=== PATIENT | male | born 1930 | race Caucasian/White ===

== ENCOUNTER 2018-08-25 10:18 | Observation (INO) | payer MEDICARE ==
--- NOTE | 2018-08-25 10:37 | ED ---
Syncope/Near Syncope - HPI Summary HPI Summary: An 87 y/o male GRAYSON presents to the ED due to syncope the morning of 08/25/2018 at [facility]. Per he had right shoulder or right chest pain prior to syncope , so she told him to wait at the caf while she finished shopping. She was told that her lost consciousness and hit his head. He also c/o cough. He denies ALLEN, N/V/D, Fever, Chills, Erythema (eyes), Sore throat, Shortness of Breath, Abdominal pain, Dysuria, Hematuria, Edema, Rash and Dizziness. The pt states he is not on blood thinners but is taking BP medication and recently changed his cholesterol medication to Lovastatin one week ago. Per he has a Hx of dementia. He denies a Hx of A-fib. His states that the pt had one syncopal episode 4 years ago when drinking more than usual. - History Of Current Complaint Time Seen by Provider: 08/25/18 10:19 Hx Obtained From: Patient, Family/Concrete Puddler, EMS Onset/Duration: Sudden Onset Context: Witnessed Activity At Onset: Unknown Associated Head Trauma: Yes Associated Signs And Symptoms: Chest Pain - Risk Factors Cardiac Risk Factors: Hypertension, Family History - OR - Allergies/Home Medications Allergies/Adverse Reactions: Allergies Allergy/AdvReac Type Severity Reaction Status Date / Time No Known Allergies Allergy Verified 08/25/18 10:30 Home Medications: Home Medications Ascorbic Acid TAB* [Vitamin C TAB*] 500 mg PO DAILY 08/25/18 [History Confirmed 08/25/18] Calcium Carb/Vit D3/Minerals [Calcium 600+D Plus [place]] 1 tab PO DAILY [History Confirmed 08/25/18] Cholecalciferol TAB* [Vitamin D TAB*] 400 unit PO DAILY 08/25/18 [History Confirmed 08/25/18] Enalapril TAB* [Vasotec TAB*] 20 mg PO BID 08/25/18 [History Confirmed 08/25/18] Finasteride TAB* [Proscar TAB*] 5 mg PO DAILY 08/25/18 [History Confirmed ] Flaxseed Oil [[place]-3 Flaxseed Oil] 1,000 mg PO DAILY 08/25/18 [History Confirmed 08/25/18] Lovastatin (NF) [Mevacor (NF)] 10 mg PO BEDTIME 08/25/18 [History Confirmed 03/07] Memantine TAB* [Namenda TAB*] 10 mg PO BID 08/25/18 [History Confirmed 08/25/18] Multivitamins/Minerals TAB* [Theragran/minerals TAB*] 1 tab PO DAILY 08/25/18 [ History Confirmed 08/25/18] Tamsulosin CAP* [Flomax CAP*] 0.4 mg PO BEDTIME 08/25/18 [History Confirmed 03/07] PMH/Surg Hx/FS Hx/Imm Hx Cardiovascular History: Denies: Hx Pacemaker/ICD Sensory History: Reports: Hx Hearing Aid Psychiatric History: Denies: Hx Panic Disorder - Cancer History Cancer Type, 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 BASAL SKIN CA REMOVED FROM NOSE, BACK,FOOT Infectious Disease History: No Infectious Disease History: Denies: Traveled Outside the [place] in Last 30 Days - Family History Known Family History: Positive: Cardiac Disease Negative: Diabetes, Blood Disorder - Social History Lives: With Family Alcohol Use: Occasionally Review of Systems Negative: Fever, Chills Negative: Erythema Negative: Sore Throat Positive: Chest Pain Positive: Cough. Negative: Shortness Of Breath Negative: Abdominal Pain, Vomiting, Diarrhea, Nausea Negative: dysuria, hematuria Positive: Myalgia - right shoulder pain. Negative: Edema Negative: Rash Neurological: Negative - dizziness Negative: Headache All Other Systems Reviewed And Are Negative: Yes Physical Exam - Summary Physical Exam Summary: Constitutional: Well-developed, Well-nourished, Alert. (-) Distressed Skin: Warm, Dry HENT: Normocephalic, abrasion left frontal Eyes: Conjunctiva normal Neck: Musculoskeletal ROM normal neck. (-) JVD, (-) Stridor, (-) Tracheal deviation Cardio: Rhythm regular, rate normal, Heart sounds normal; Intact distal pulses; The pedal pulses are 2+ and symmetric. Radial pulses are 2+ and symmetric. (-) Murmur Pulmonary/Chest wall: Effort normal. (-) Respiratory distress, (-) Wheezes, (-) Rales Abd: Soft, (-) epigastric tenderness, (-) Distension, (-) Guarding, (-) Rebound Musculoskeletal: (-) Edema Lymph: (-) Cervical adenopathy Neuro: Alert, Oriented x3 Psych: Mood and affect Normal Triage Information Reviewed: Yes Vital Signs On Initial Exam: Initial Vitals Temp Pulse Resp BP Pulse Ox 99.8 F 71 16 179/101 96 08/25/18 10:27 08/25/18 10:27 08/25/18 10:27 08/25/18 10:27 08/25/18 10:27 Vital Signs Reviewed: Yes Diagnostics - Vital Signs Vital Signs Temp Pulse Resp BP Pulse Ox 08/25/18 10:27 99.8 F 71 16 179/101 96 - Laboratory Result Diagrams: 08/25/18 10:35 08/25/18 10:35 Lab Statement: Any lab studies that have been ordered have been reviewed, and results considered in the medical decision making process. - Radiology CXR Radiology Interpretation Completed By: Radiologist - No evidence for acute cardiopulmonary disease. This report has been reviewed by the ED physician. - CT Brain CT Interpretation Completed By: Radiologist - 1. NO EVIDENCE FOR ACUTE INTRACRANIAL ABNORMALITY. 2. ATROPHY AND FINDINGS MOST CONSISTENT WITH MODERATE CHRONIC SMALL VESSEL ISCHEMIC CHANGES. This report has been reviewed by the ED physician. - EKG 10:15 Cardiac Rate: NL - 72 bpm EKG Rhythm: Sinus Rhythm Summary of EKG Findings: no STEMI Course/Dx Course Of Treatment: An 87 y/o male GRAYSON presents to the ED due to syncope the morning of 08/25/2018 at [facility]. His PE showed an abrasion on his left frontal area of his head. His CXR was negative while his Brain CT showed findings most consistent with chronic small vessel ischemic changes. His EKG and lab results were normal. He had an episode of HTN in the ED. He will be admitted to Dr. Guido, hospitalist. Dx: syncope - Diagnoses Provider Diagnoses: Syncope - Physician Notifications Discussed Care of Patient With: James Guido Time Discussed With Above Provider: 11:30 Instructed by Provider To: Admit As Inpatient Discharge - Sign-Out/Discharge Documenting (check all that apply): Patient Departure - Admit - Discharge Plan Condition: Fair Disposition: ADMITTED TO [facility] - Attestation Statements Document Initiated by Scribe: Yes Documenting Scribe: Gil Jolly Provider For Whom Scribe is Documenting (Include Credential): Fernando Sotelo MD Scribe Attestation: Gil Childs scribed for Fernando Sotelo MD on 08/25/18 at 1327.
[2018-08-25 10:47] LABS: ABS Basophils 0 10^3/ul (0-0.2); ABS Eosinophils 0 10^3/ul (0-0.6); ABS Lymphocytes 1.4 10^3/ul (1.0-4.8); ABS Monocytes 0.9 10^3/ul (0-0.8); ABS Neutrophils 8.1 10^3/ul (1.5-7.7); ABS Nucleated RBC 0 10^3/ul; Eosinophil % 0.4 % (0-6); Hematocrit 39 % (42-52); Hemoglobin 13.3 g/dl (14.0-18.0); Lymphocyte % 13.3 % (25-47); Mean Corpuscular HGB Conc 34 g/dl (31-36); Mean Corpuscular Hemoglobin 32 pg (27-31); Mean Corpuscular Volume 93 fL (80-94); Mean Platelet Volume 7.2 fL (7.4-10.4); Nucleated Red Blood Cells % 0; Platelet Count 230 10^3/ul (150-450); Red Cell Distribution Width 13 % (10.5-15); White Blood Count 10.5 10^3/ul (3.5-10.8)
[2018-08-25 11:05] LABS: EGFR Non-African American 37.1 (>60)
[2018-08-25] MEDS ORDERED: NS 0.9% 1000 ML* 1,000 ML IV SCH (12:15)
[2018-08-25 13:16] LABS: Urine Appearance Cloudy; Urine Blood Negative (Negative); Urine Color Yellow; Urine Ketones Negative (Negative); Urine Protein Negative (Negative); Urine Specific Gravity 1.014 (1.010-1.030); Urine Urobilinogen Negative (Negative)
[2018-08-25] MEDS: Bacitracin OINTMENT* 0.5% 0.5 oz TUBE TOPICAL SCH (14:02)
--- NOTE | 2018-08-25 15:05 | ECHO ---
Patient: BLU GUTIERRES [facility] Rec#: [id number] : 1930 Date: 08/25/2018 Age: 87y Height: 170.18 cm / 67.0 in Weight: 68.04 kg / 150.0 lbs Sex: M BSA: 1.79 Room#: ED 19 Admit Date#: 08/25/2018 Type: Inpatient Referring: ARI GUPTA Reading: Marquis Frost DO Assembly Inspector: Madeline Khanna,RDCS,RDMS CC: PAULA TAYLOR WAREHOUSE HELPER Transthoracic Echocardiogram Indication: Syncope BP: 178/70 HR: 82 Rhythm: NSR Findings History: HTN Technical Comments: The study quality is good. Left Ventricle: The left ventricular chamber size is normal. Mild concentric left ventricular hypertrophy is observed. Global left ventricular wall motion and contractility are within normal limits. There is normal left ventricular systolic function. The estimated ejection fraction is 60-65%. Abnormal left ventricular diastolic function is observed. Left Atrium: The left atrium is mildly dilated. Right Ventricle: The right ventricular chamber size and systolic function are within normal limits. Right Atrium: The right atrial cavity size is normal. Aortic Valve: The aortic valve is trileaflet. The aortic valve leaflets are mildly thickened. Mild aortic leaflet calcification is visualized. Systolic excursion of the aortic valve is normal. There is aortic annular calcification. There is no evidence of aortic regurgitation. There is no evidence of aortic stenosis. Mitral Valve: Mild mitral annular calcification present. The mitral valve leaflets are mildly thickened. There is trace to mild mitral regurgitation. There is no evidence of mitral stenosis. Tricuspid Valve: The tricuspid valve leaflets are normal. There is trace tricuspid regurgitation. Unable to estimate the right ventricular systolic pressure. Pulmonic Valve: There is no evidence of pulmonic valve thickening. There is a trace pulmonic regurgitation. There is no pulmonic stenosis. Pericardium: There is no significant pericardial effusion. Pulmonary Artery: The main pulmonary artery is not well visualized. Venous: The inferior vena cava is not visualized. Conclusions The left ventricular chamber size is normal. Mild concentric left ventricular hypertrophy is observed. Global left ventricular wall motion and contractility are within normal limits. There is normal left ventricular systolic function. The estimated ejection fraction is 60-65%. The left atrium is mildly dilated. The right ventricular chamber size and systolic function are within normal limits. No significant valvular abnormalities noted. None prior for comparison at time of interpretation. Measurements Name Value Normal Range RVIDd (AP) 2D 1.9 cm (0.9 - 2.6) RVDdMajor (2D) 2.2 cm (2.2 - 4.4) RAd ISD 4CH 3.5 cm (3.4 - 4.9) RA (A4C)W 2 cm (2.9 - 4.6) IVSd (2D) 1.1 cm (0.6 - 1) LVPWd (2D) 1.1 cm (0.6 - 1) LVIDd (2D) 4.1 cm (3.6 - 5.4) LVIDs (2D) 1.9 cm - LV FS (2D) 54 % (25 - 45) Aortic Annulus 2 cm (1.4 - 2.6) Ao root diameter (2D) 3.3 cm (2.1 - 3.5) Ascending Ao 3 cm (2.1 - 3.4) Aortic arch 2.3 cm (1.8 - 3.4) LA dimension (AP) 2D 3.8 cm (2.3 - 3.8) LAd ISD 4CH 5.2 cm (2.9 - 5.3) LA ISD 4CH W 4.6 cm (2.5 - 4.5) Name Value Normal Range LA ESV SP 4CH (A/L) 53.5 ml - LA ESV SP 2CH (A/L) 67.8 ml - LA ESV BP (A/L) 64.62 ml - LA ESV BP (A/L) index 36 ml/m2 - LA ESV SP 4CH (MOD) 52.8 ml - LA ESV SP 2CH (MOD) 66.89 ml - Name Value Normal Range MV E-wave Vmax 0.9 m/sec - MV deceleration time 220 msec - MV A-wave Vmax 1.3 m/sec - MV E:A ratio 0.7 ratio - P. vein S-wave Vmax 0.7 m/sec - P. vein D-wave Vmax 0.3 m/sec - P. vein S:D Vmax ratio 2.6 ratio - P. vein A-wave duration 121 msec - LV septal e' Vmax 0.06 m/sec - LV lateral e' Vmax 0.05 m/sec - LV E:e' septal ratio 16 ratio - LV E:e' lateral ratio 18 ratio - Name Value Normal Range AV Vmax 1.3 m/sec - AV VTI 27 cm - AV peak gradient 7 mmHg - AV mean gradient 3.5 mmHg - LVOT diameter 2 cm - LVOT Vmax 0.8 m/sec - LVOT VTI 20.5 cm - LVOT peak gradient 2.6 mmHg - LVOT mean gradient 1.5 mmHg - LON (continuity Vmax) 1.9 cm2 - LON (continuity VTI) 2.3 cm2 - KATIE Vmax 0.4 m/sec - Name Value Normal Range MV Vmax 1.4 m/sec - MV VTI 38 cm - MV peak gradient 8 mmHg - MV mean gradient 2.3 mmHg - MV PHT 104 msec - MVA (PHT) 2.1 cm2 - MVA (continuity VTI) 1.6 cm2 - Name Value Normal Range RAP 8 mmHg - Name Value Normal Range PV Vmax 0.6 m/sec - PV peak gradient 1.6 mmHg -
--- NOTE | 2018-08-25 16:39 | HP ---
AMENDED REPORT NOW INCLUDES DESIGNATED COSIGNER CC: Mario Weiner NP * HISTORY AND PHYSICAL: DATE OF ADMISSION: 08/25/18 PRIMARY CARE PHYSICIAN: Mario Weiner NP PROVIDER: Nikki Gupta NP ATTENDING PHYSICIAN: Dr. James Guido * (dictated by Nkiki Gupta NP). CHIEF COMPLAINT: Syncope HISTORY OF PRESENT ILLNESS: Mr. Dobbs is an 87-year-old male with a past medical history of dementia, hypertension, hyperlipidemia, BPH, who presented to the ED after an unwitnessed syncopal event. The patient has dementia at baseline and is a poor historian and does not remember the event. Per the pt's , he was with her at [facility] when he told her that he was feeling some right shoulder pain and she told him to wait for her in the cafe area. She then heard her name on the loudspeaker and was told that her had fainted and hit his head. When she came to the cafe, he was lying on the ground and she reported that he looked pale. The patient was in his normal state of health prior to this event. She denied that he's had recent illness, fever, chills, cough, nausea, vomiting, diarrhea. The patient ate breakfast as usual today and drank coffee and orange juice. Of note, the patient did have an episode of syncope 4 years ago and was told at that time that it was due to dehydration. On exam today, the patient denies dizziness, headache, shortness of breath, nausea, vomiting, abdominal pain, numbness or tingling in his extremities. The patient on exam does not endorse any right shoulder or chest pain. Of note, vitals in the ED were significant for SBP in the 170s. The patient was afebrile. The patient underwent a head CT in the ED, which showed no acute intracranial abnormalities; a chest x-ray, which showed no acute cardiopulmonary disease; and an EKG, which showed normal sinus rhythm without evidence of ischemia or infarction. The patient's labs were notable for a troponin of 0 and no leukocytosis. The hospitalist team was asked to admit this patient due to an unwitnessed syncopal event in a dementia patient despite having no risk factors for serious outcomes at 7 days using the [place] Syncope Rule. The patient will be worked up for orthostatic hypotension versus vasovagal syncope versus cardiogenic syncope. PAST MEDICAL HISTORY: 1. Dementia. 2. Hypertension. 3. Hyperlipidemia. 4. BPH. 5. Basal cell skin cancer. PAST SURGICAL HISTORY: 1. Hernia repair. 2. Basal skin cancer removal from nose, back, and foot. HOME MEDICATIONS: 1. Flaxseed oil 1000 mg p.o. daily. 2. Vitamin D tab 400 units p.o. daily. 3. Multivitamin 1 tab p.o. daily. 4. Calcium 600 plus D plus minerals 1 tab p.o. daily. 5. Vitamin C 500 mg p.o. daily. 6. Proscar 5 mg p.o. daily. 7. Memantine 10 mg p.o. b.i.d. 8. Flomax 0.4 mg p.o. at bedtime. 9. Lovastatin 10 mg p.o. at bedtime. 10. Enalapril 20 mg p.o. b.i.d. ALLERGIES: The patient has no known allergies. FAMILY HISTORY: The patient's father had an [place]. There is no family history of diabetes. The patient does have a family history of cancer. His sister of melanoma. SOCIAL HISTORY: The patient is not currently a smoker. He quit in 1966 and reported never being a heavy smoker. The patient drinks 1 glass of red wine every night. The patient would like to be a full code and the patient's medical decision maker will be his , Savannah Dobbs. REVIEW OF SYSTEMS: I performed a 14-point review of systems. All the pertinent positives and negatives are mentioned in the history of present illness. The remaining review of systems are negative. PHYSICAL EXAMINATION GENERAL APPEARANCE: The patient is alert, pleasant, and appears to be in no acute distress. VITAL SIGNS: Temperature 99.8, heart rate 69, blood pressure 178/78, respiratory rate 21, pulse ox 97% on room air. HEENT: Normocephalic. The patient does have an approximately 2-inch x 2-inch abrasion on his left scalp. The pupils are equal, round, and reactive to light and accommodation. Extraocular movements are intact. NECK: Supple. There is no lymphadenopathy noted. No JVD appreciated. RESPIRATORY: No accessory muscle use. Lungs are clear to auscultation. Normal work of breathing. CARDIAC: Regular rate and rhythm. S1 and S2 present. No murmurs, rubs, or gallops heard. ABDOMEN: Soft, nontender, and nondistended. Bowel sounds x4. EXTREMITIES: No lower extremity edema. MUSCULOSKELETAL: No clubbing or cyanosis noted. The patient exhibited 5/5 strength in all 4 extremities. NEURO: The patient is alert and oriented to self and location, but not to place. No facial droop appreciated. PSYCH: The patient is calm and cooperative. SKIN: No rashes or abnormalities seen. DIAGNOSTIC STUDIES/LAB DATA: White blood cell count 10.5, red blood cell count 4.20, hemoglobin 13.3, hematocrit 39, MCV 93, MCH 32, MCHC 34, RDW 13, platelet count 230, MPV 7.2, neutrophil percent 77.4, lymph percent 13.3, mono percent 8.7, eosinophil percent 0.4, baso percent 0.2. Chemistry: Sodium 138, potassium 5, chloride 107, carbon dioxide 27, anion gap 4, BUN 26, creatinine 1.75, glucose 120, lactic acid 1.4, calcium 8.9, magnesium 2.0. Total bilirubin 0.4, AST 18, ALT 14, alk phos 69. Troponin 0.0. Total protein 4.8, albumin 3.6, globulin 2.2, albumin/globulin ratio 1.6. TSH 1.98. Diagnostics: EKG with normal sinus rhythm, rate of 72. No evidence of ischemia. Chest x-ray: No evidence of acute cardiopulmonary disease. CT brain: No evidence for acute intracranial abnormality. Findings consistent with moderate chronic small vessel ischemic changes. ASSESSMENT: The patient is an 87-year-old male with a past medical history significant for dementia, hypertension, hyperlipidemia, who presented to the ED after an unwitnessed syncopal episode and will be admitted to the hospitalist service for further medical workup. PLAN: 1. Syncope. Differentials include orthostatic hypotension versus vasovagal versus cardiogenic. The patient is a poor historian and is unable to share whether he had any prodromal symptoms besides the right shoulder pain, which he relayed to his . The patient does not have any of the risk factors identified in the [place] Syncope Rule to predict serious outcomes, however as he has a history of dementia, further workup is indicated. The patient will be placed on telemetry for cardiac rhythm monitoring. His initial EKG was normal sinus rhythm. The patient will be rehydrated with IV fluids at 75 mL an hour for 1 L and we will measure his orthostatic vitals. This is also in the setting of a mild increase in his creatinine, 1.75 today from his baseline around 1.67. The patient will also undergo an echocardiogram and we will have a followup troponin. 2. Hypertension. The patient will be continued on his home enalapril. 3. Hyperlipidemia. The patient's lovastatin is nonformulary, so it will be on hold at this time. 4. BPH. We will continue the patient's home Proscar and Flomax. Flomax can contribute to orthostatic hypotension; however, the patient has been on this medication for a long time and it is likely noncontributory. 5. Diet: Heart-healthy diet. 6. DVT prophylaxis: The patient is high risk and will be on heparin subcu. 7. Code status: The patient is a full code. 8. Disposition: Observation. Anticipate discharge to home when medically stable. TIME SPENT: Time spent for this admission was 60 minutes, 35 minutes were spent with the patient discussing medications, past medical history, events leading up to their arrival today, and performing a physical exam. The case has been reviewed with the attending, Dr. Guido, who agrees with the plan of care. NIKKI GUPTA NP [id number]/[facility] #: [id number] BHARATHI
[2018-08-25] MEDS: Heparin VIAL(*) 5000 UNITS/ML VIAL (FIVE THOUSAND) SUBCUT SCH ×2 (18:16→21:25)
[2018-08-25] MEDS ORDERED: Tamsulosin CAP* 0.4 MG PO SCH (21:00)
[2018-08-25] MEDS: Enalapril TAB* 20 MG PO SCH (21:25)
[2018-08-26] MEDS: Heparin VIAL(*) 5000 UNITS/ML VIAL (FIVE THOUSAND) SUBCUT SCH (05:42)
[2018-08-26] MEDS: Bacitracin OINTMENT* 0.5% 0.5 oz TUBE TOPICAL SCH (07:03)
[2018-08-26] MEDS: Enalapril TAB* 20 MG PO SCH (07:03)
[2018-08-26 07:51] LABS: ABS Basophils 0 10^3/ul (0-0.2); ABS Eosinophils 0 10^3/ul (0-0.6); ABS Lymphocytes 1.7 10^3/ul (1.0-4.8); ABS Monocytes 0.8 10^3/ul (0-0.8); ABS Neutrophils 5.6 10^3/ul (1.5-7.7); ABS Nucleated RBC 0 10^3/ul; Eosinophil % 0.5 % (0-6); Hematocrit 38 % (42-52); Lymphocyte % 20.7 % (25-47); Mean Corpuscular HGB Conc 34 g/dl (31-36); Mean Corpuscular Hemoglobin 32 pg (27-31); Mean Corpuscular Volume 93 fL (80-94); Mean Platelet Volume 7.5 fL (7.4-10.4); Nucleated Red Blood Cells % 0; Platelet Count 208 10^3/ul (150-450); Red Blood Count 4.12 10^6/ul (4.00-5.40); Red Cell Distribution Width 13 % (10.5-15); White Blood Count 8.2 10^3/ul (3.5-10.8)
[2018-08-26 08:00] LABS: EGFR Non-African American 46.8 (>60)
[2018-08-26] MEDS ORDERED: Finasteride TAB* 5 MG PO SCH (09:00)
[2018-08-26] MEDS ORDERED: Metoprolol Succinate XL TAB* 50 MG PO SCH (11:00)
[2018-08-26 16:02] VITALS: BP 134/49
--- NOTE | 2018-08-27 12:21 | DS ---
AMENDED REPORT NOW INCLUDES COSIGNER DESIGNATION CC: Mario Weiner NP * DISCHARGE SUMMARY: DATE OF ADMISSION: 08/25/18 DATE OF DISCHARGE: 08/26/18 PRIMARY CARE PROVIDER: Mario Weiner NP. ATTENDING PHYSICIAN: Dr. Nabeel Cooley * (dictated by Reina Ta NP). PRIMARY DIAGNOSES: 1. Syncope. 2. Paroxysmal supraventricular tachycardia. SECONDARY DIAGNOSES: 1. Hypertension. 2. Hyperlipidemia. 3. Dementia. 4. Benign prostatic hyperplasia. STUDIES WHILE IN THE HOSPITAL: 1. Brain CT on 08/25/18, reads as no evidence for acute intracranial abnormality, intracranial findings most consistent with moderate chronic small vessel ischemic changes 2. Chest x-ray on 08/25/18, reads as no evidence for active cardiopulmonary disease. 3. Transthoracic echocardiogram on 08/25/18 reads as the left ventricular chamber size is normal, mild concentric left ventricular hypertrophy is observed. Global left ventricular wall motion and contractility are within normal limits. There is normal left ventricular systolic function. The estimated ejection fraction is 50% to 55%. The left atrium is mildly dilated. The right ventricular chamber size on systolic function is within normal limits. No significant valvular abnormalities noted. No prior comparison studies. HISTORY OF PRESENT ILLNESS AND HOSPITAL COURSE: Mr. Dobbs is an 87-year-old male with past medical history of dementia, hypertension, hyperlipidemia, and BPH, who presented to the emergency room on 08/25/18 after an unwitnessed syncopal event. Please see the history and physical by Nikki Goff NP, for a complete summary of the events leading up to this hospitalization. In short, the patient has severe dementia and is not able to provide any subjective data. He was with his at [facility]. She reports that he was having right shoulder pain and so she left him sitting down at a table and went to another area of the store when she was paged overhead as he was lying on the ground and reportedly pale. He was in his normal state of health prior to this event. In the emergency room, he denied any dizziness, headache, shortness of breath. He denied any right shoulder or chest pain. He was noted to have a systolic blood pressure in the 170s. Imaging was unremarkable as noted above. He had an EKG, which showed normal sinus rhythm without evidence of ischemia. He was admitted by the hospitalist service for syncope of unknown etiology. Mr. Dobbs had an uneventful night. His reported that he was becoming anxious overnight after she left and she was likely concerned about his ability to cope without her. I received a call from nursing staff this morning stating that the patient had 9 beats of paroxysmal supraventricular tachycardia. He was reportedly asymptomatic at that time, though again he is a poor historian and not able to provide any subjective data. He has otherwise been in normal sinus rhythm on telemetry. Orthostatic vitals were unremarkable. Troponins were 0.00. The patient continued to have elevated blood pressures with systolic in the 150s and 160s. The patient was started on metoprolol succinate 50 mg p.o. after consultation with my attending. The patient received a dose of this this morning and was monitored for approximately 4 hours. During that time, his blood pressure had come down into the 130s systolic. His heart rate has remained around 60. He has not had any more episodes of PSVT on telemetry though I think that the PSVT is the cause of this syncopal event. Mr. Dobbs is stable for discharge today. Vital signs are as follows: Temp 98.0, heart rate 61, respiratory 20, oxygen saturation 99% on room air. Blood pressure 134/49. DISCHARGE MEDICATIONS: New home medications: 1. Metoprolol succinate 50 mg p.o. daily. Continued home medications: 1. Enalapril 20 mg p.o. b.i.d. 2. Finasteride 5 mg p.o. daily. 3. Tamsulosin 0.4 mg p.o. daily. 4. Ascorbic acid 500 mg p.o. daily. 5. Calcium 600 plus vitamin D 1 tab p.o. daily. 6. Vitamin D 400 units p.o. daily. 7. [place]-3 flaxseed oil 1000 mg p.o. daily. 8. Lovastatin 10 mg p.o. daily. 9. Namenda 10 mg p.o. b.i.d. 10. Multivitamin 1 tab p.o. daily. DISCHARGE PLAN: Mr. Dobbs will be discharged home with his . Activity as tolerated. Diet will be heart healthy. Medications are as noted above. The patient has been started on metoprolol succinate for rate control of his newly noted PSVT. He can resume his other usual home medications. His has been instructed that he should follow up with his PCP in approximately 4 to 7 days. Further management of PSVT can be discussed at that time. The patient's has been instructed to bring him back to the emergency room or nearest hospital for any worsening of symptoms, shortness of breath, lightheadedness, dizziness, chest discomfort, high fevers, chills, night sweats, loss of consciousness or any other worrisome signs or symptoms. This is a summarized report of a complex medical history and hospital stay. For further details, please see the entire medical record. TIME SPENT: Approximately 45 minutes was spent on this discharge, greater than half of that time was spent [id number] with the patient and his discussing discharge plans and instructions. REINA TA NP [id number]/[facility] #: [id number] BHARATHI
== END 2018-08-26 15:51 | disposition home or self-care (01) ==
LOC: ED 10:18 → MEDTELE 12:13
PROVIDERS: ADMIT Internal Medicine; ATTEND Internal Medicine
DX: R55 Syncope and collapse (principal); I47.1 Supraventricular tachycardia; I10 Essential (primary) hypertension; E78.5 Hyperlipidemia, unspecified; F03.90 Unspecified dementia, unspecified severity, without behavioral disturbance, psychotic disturbance, mood disturbance, and anxiety; N40.0 Benign prostatic hyperplasia without lower urinary tract symptoms; Z85.828 Personal history of other malignant neoplasm of skin; R07.9 Chest pain, unspecified
CPT/HCPCS: 36415; 70450; 71046; 80048; 80053; 81003; 83605; 83735; 84443; 84484; 85025; 93005; 93306; 96360; 96361; 99283; A9270-GY; G0378; J1644

== ENCOUNTER 2018-08-31 19:59 | Emergency (ER) | payer MEDICARE ==
--- NOTE | 2018-08-31 22:13 | ED ---
Hypertension - HPI Summary HPI Summary: This patient is a 87 year old M presenting to [facility] accompanied by his with a chief complaint of an elevated BP reading today. Pt states he was 206/78 at home, at triage he was 200/82. The patient rates the pain 0/10 in severity. Patient denies recent illness, marks, vision changes, numbness, weakness, vomiting , and nausea. Pt recently started 50mg XR metoprolol last time he was in the hospital 6 days ago. Took dose at 1300, he also takes enalapril 20 BID. - History of Current Complaint Chief Complaint: EDHypertension Stated Complaint: HIGH BLOOD PRESSURE Time Seen by Provider: 08/31/18 22:04 Hx Obtained From: Patient Onset/Duration: Started Hours Ago, Still Present Timing: Constant Associated Signs & Symptoms: Negative - recent illness - Allergies/Home Medications Allergies/Adverse Reactions: Allergies Allergy/AdvReac Type Severity Reaction Status Date / Time No Known Allergies Allergy Verified 08/31/18 20:16 PMH/Surg Hx/FS Hx/Imm Hx Endocrine/Hematology History: Denies: Hx Thyroid Disease Cardiovascular History: Reports: Hx Hypertension, Hx Supraventricular Ventricular Tachycardia Denies: Hx Pacemaker/ICD Respiratory History: Denies: Hx Chronic Obstructive Pulmonary Disease (COPD) GI History: Denies: Hx Gastroesophageal Reflux Disease Sensory History: Reports: Hx Contacts or Glasses, Hx Hearing Aid Opthamlomology History: Reports: Hx Contacts or Glasses Psychiatric History: Denies: Hx Panic Disorder - Cancer History Cancer Type, 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 BASAL SKIN CA REMOVED FROM NOSE, BACK,FOOT Infectious Disease History: No Infectious Disease History: Denies: Traveled Outside the [place] in Last 30 Days - Family History Known Family History: Positive: Cardiac Disease Negative: Diabetes, Blood Disorder - Social History Alcohol Use: Occasionally Alcohol Amount: wine Substance Use Type: Reports: None Smoking Status (MU): Former Smoker Review of Systems Constitutional: Negative - recent illness Negative: Blurred Vision Positive: Other - elevated BP Negative: Vomiting, Nausea Negative: Headache, Weakness, Numbness All Other Systems Reviewed And Are Negative: Yes Physical Exam - Summary Physical Exam Summary: GENERAL: Patient is a well-developed and elderly male who is lying comfortable in the stretcher. Patient is not in any acute respiratory distress. HEAD AND FACE: Normocephalic EYES: PERRLA, EOMI x 2. EARS: Hearing grossly intact. MOUTH: Oropharynx within normal limits. NECK: Supple, trachea is midline, no adenopathy, no JVD, no carotid bruit. CHEST: Symmetric, no tenderness at palpation LUNGS: Clear to auscultation bilaterally. No wheezing or crackles. CVS: Regular rate and rhythm, S1 and S2 present, no murmurs or gallops appreciated. ABDOMEN: Soft, non-tender. Bowel sounds are normal. No abdominal abnormal pulsations. EXTREMITIES: Full ROM in all major joints, no edema, no cyanosis or clubbing. NEURO: Alert and oriented x 3. No acute neurological deficits. Speech is normal and follows commands. SKIN: Dry and warm Triage Information Reviewed: Yes Vital Signs On Initial Exam: Initial Vitals Temp Pulse Resp BP Pulse Ox 98.2 F 52 16 200/82 98 08/31/18 20:05 08/31/18 20:05 08/31/18 20:05 08/31/18 20:05 08/31/18 20:05 Vital Signs Reviewed: Yes Diagnostics - Vital Signs Vital Signs Temp Pulse Resp BP Pulse Ox 08/31/18 20:05 98.2 F 52 16 200/82 98 - Laboratory Lab Statement: Any lab studies that have been ordered have been reviewed, and results considered in the medical decision making process. Re-Evaluation - Re-Evaluation First Eval Re-Evaluation Time: 23:42 Change: Improved Comment: The patients BP has improved and is 186/71. The patient is still asymptomatic Hypertension Course/Dx - Course Assessment/Plan: This patient is a 87 year old M presenting to [facility] accompanied by his with a chief complaint of an elevated BP reading today. Pt states he was 206/78 at home, at triage he was 200/82. The patient rates the pain 0/10 in severity. Patient denies recent illness, marks, vision changes, numbness, weakness, vomiting, and nausea. Pt recently started 50mg XR metoprolol last time he was in the hospital 6 days ago. Took dose at 1300, he also takes enalapril 20 BID. The patients BP has improved and is 186/71. Pt will be discharged. Has an appointment with his primary care provider. I recommend starting on amlodipine 5mg daily. However I will not prescribe this incase his PCP disagrees. The patient is still asymptomatic and has been the whole ED course. In the ED course the patient was given clonidine which he responded to. Patient will be discharged and follow up from PCP. The patient is agreeable with this plan. - Diagnoses Provider Diagnoses: Asymptomatic hypertension Discharge - Sign-Out/Discharge Documenting (check all that apply): Patient Departure - Discharge Plan Condition: Stable Disposition: HOME Patient Education Materials: Chronic Hypertension (DC) Referrals: Maroi Weiner ANIMAL TECHNICIAN [Primary Care Provider] - Additional Instructions: Keep your appointment as planned for tomorrow. I recommend 5mg of amlodipine daily, however discuss this with your PCP. Return to the ED for any new or worsening symptoms. - Attestation Statements Document Initiated by Scribe: Yes Documenting Scribe: Emiliano Gorman Provider For Whom Scribe is Documenting (Include Credential): Kait Winchester MD Scribe Attestation: IEmiliano , scribed for Kait Winchester MD on 08/31/18 at 2342.
[2018-08-31] MEDS ORDERED: cloNIDine TAB* 0.1 MG PO ONE (22:15)
[2018-08-31 23:47] VITALS: BP 165/74
== END 2018-08-31 23:54 | disposition home or self-care (01) ==
LOC: ED 19:59
DX: I10 Essential (primary) hypertension (principal); Z87.891 Personal history of nicotine dependence
CPT/HCPCS: 99283; A9270-GY